=== PATIENT | male | born 2000 | race American Indian/Alaskan Native ===

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

== ENCOUNTER 2023-09-16 10:25 | Emergency (ER) | payer MEDICAID ==
[2023-09-16 11:04] LABS: APPEARANCE,URINE CLEAR (CLEAR); BILIRUBIN,URINE NEGATIVE (NEGATIVE); COLOR,URINE YELLOW (YELLOW); GLUCOSE,URINE NEGATIVE (NEGATIVE); KETONES,URINE NEGATIVE (NEGATIVE); LEUKOCYTE ESTERASE,URINE NEGATIVE (NEGATIVE); NITRITE,URINE NEGATIVE (NEGATIVE); OCCULT BLOOD,URINE NEGATIVE (NEGATIVE); PROTEIN,URINE NEGATIVE (NEGATIVE); UROBILINOGEN,URINE 0.2 mg/dL (0.2-1.0)
[2023-09-16 11:26] VITALS: BP 154/93; PULSE 74
[2023-09-16 11:42] LABS: INFLUENZA A NAA NEGATIVE (NEGATIVE); INFLUENZA B NAA NEGATIVE (NEGATIVE); RESPIRATORY SYNCYTIAL VIR NAA NEGATIVE (NEGATIVE)
[2023-09-16 11:43] LABS: CORONAVIRUS COVID-19 NAA POSITIVE (NEGATIVE)
== END 2023-09-16 12:02 | disposition home or self-care (01) ==
LOC: DL.ED 10:25
DX: U07.1 COVID-19 (principal)
CPT/HCPCS: 0241U; 71046; 81003; 99283

== ENCOUNTER 2024-01-24 03:50 | Emergency (ER) | payer MEDICAID ==
[2024-01-24 04:13] VITALS: BP 148/104; PULSE 99
== END 2024-01-24 05:17 | disposition home or self-care (01) ==
LOC: DL.ED 03:50
DX: S00.01XA Abrasion of scalp, initial encounter (principal); F10.120 Alcohol abuse with intoxication, uncomplicated; Y09 Assault by unspecified means; Y90.9 Presence of alcohol in blood, level not specified
CPT/HCPCS: 70450; 72125; 99283; 99284

== ENCOUNTER 2025-06-15 05:15 | Emergency (ER) | payer SELFPAY ==
[2025-06-15 09:07] VITALS: BP 121/69; PULSE 65
== END 2025-06-15 08:45 | disposition home or self-care (01) ==
LOC: DL.ED 05:15
DX: F10.129 Alcohol abuse with intoxication, unspecified (principal); F17.210 Nicotine dependence, cigarettes, uncomplicated; Y04.2XXA Assault by strike against or bumped into by another person, initial encounter
CPT/HCPCS: 70150; 71111; 99283; 99284; A9270

== ENCOUNTER 2025-08-21 14:15 | Emergency (ER) | payer SELFPAY ==
[2025-08-21 14:39] VITALS: BP 137/93; PULSE 109
[2025-08-21] MEDS: Ketorolac 30 MG/ML SDV IM ONE (14:56)
== END 2025-08-21 15:50 | disposition home or self-care (01) ==
LOC: DL.ED 14:15
DX: S49.91XA Unspecified injury of right shoulder and upper arm, initial encounter (principal); M25.572 Pain in left ankle and joints of left foot; W01.0XXA Fall on same level from slipping, tripping and stumbling without subsequent striking against object, initial encounter
CPT/HCPCS: 73030; 86592; 87491; 87563; 87591; 96372; 99283; J1885